=== PATIENT | female | born 1995 | race Two or more races ===

== ENCOUNTER 2025-07-02 20:42 | Emergency (ER) | payer MEDICAID, OTHER ==
[~2025-07-02] VITALS: Ht 162.6 cm; Wt 74.4 kg
[2025-07-02 20:45] VITALS: BP 129/78; PULSE 83; RESP 16; TEMP 97.1; O2SAT 99
[2025-07-02] MEDS: KETOROLAC TROMETH 60MG/2ML VIAL IM ONE (21:38)
[2025-07-02] MEDS: HYDROcodone-ACET 10/325MG TAB PO ONE (21:38)
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
== END 2025-07-02 21:38 | disposition left against medical advice (07) ==
LOC: ER 20:42
DX: M54.2 Cervicalgia (principal); M54.50 Low back pain, unspecified; V43.52XA Car driver injured in collision with other type car in traffic accident, initial encounter; Y93.89 Activity, other specified; Y92.410 Unspecified street and highway as the place of occurrence of the external cause; Y99.8 Other external cause status